=== PATIENT | female | born 1945 | race Caucasian/White ===

== ENCOUNTER 2017-11-01 11:54 | Inpatient (IN) | payer MEDICARE, OTHER ==
[2017-11-01 12:44] LABS: BILIRUBIN,URINE NEGATIVE (NEG); CLARITY,URINE CLEAR; COLOR,URINE YELLOW; GLUCOSE,URINE >=1000 mg/dL (NEG); NITRITE,URINE NEGATIVE (NEG); PROTEIN,URINE NEGATIVE (NEG-TRACE); UROBILINOGEN,URINE 0.2 mg/dL (0.2 mg/dL)
[2017-11-01 12:53] LABS: ADD MAN DIFF? NO
[2017-11-01 12:59] LABS: BASO % 1 % (0-3); EOS # 0.1 x10^3/uL (0.0-0.7); EOS % 2 % (0-3); HEMATOCRIT 41.2 % (36.0-47.0); HEMOGLOBIN 13.8 g/dL (12.0-15.5); LYMPH # 1.6 x10^3/uL (1.0-4.8); LYMPH % 20 % (24-48); MEAN CORPUSCULAR HEMOGLOBIN 31 pg (25-35); MEAN CORPUSCULAR HGB CONC 34 g/dL (31-37); MEAN CORPUSCULAR VOLUME 91 fL (79-100); MONO # 0.5 x10^3/uL (0.0-1.1); MONO % 7 % (0-9); NEUT # 5.7 x10^3uL (1.8-7.7); NEUT % 71 % (31-73); PLATELET COUNT 187 x10^3/uL (140-400); RED BLOOD COUNT 4.53 x10^6/uL (3.50-5.40); RED CELL DISTRIBUTION WIDTH 13.1 % (11.5-14.5)
[2017-11-01 13:08] LABS: BACTERIA,URINE 0 /HPF (0-FEW); RBC,URINE 0 /HPF (0-2); SQUAMOUS EPITHELIAL CELL,UR FEW /LPF
[2017-11-01 13:09] LABS: ANION GAP 15 (6-14); BLOOD UREA NITROGEN 12 mg/dL (7-20); BUN/CREATININE RATIO 10 (6-20); CALCIUM 9.6 mg/dL (8.5-10.1); CARBON DIOXIDE 21 mmol/L (21-32); CHLORIDE 100 mmol/L (98-107); CREATININE 1.2 mg/dL (0.6-1.0); GFR 44.3; GLUCOSE 462 mg/dL (70-99); POTASSIUM 4.4 mmol/L (3.5-5.1); SODIUM 136 mmol/L (136-145)
[2017-11-01 13:14] LABS: ALBUMIN 3.2 g/dL (3.4-5.0); ALBUMIN/GLOBULIN RATIO 0.9 (1.0-1.7); ALK PHOS 138 U/L (46-116); ALT (SGPT) 22 U/L (14-59); AST (SGOT) 24 U/L (15-37); LIPASE 123 U/L (73-393); TOTAL BILIRUBIN 0.4 mg/dL (0.2-1.0); TOTAL PROTEIN 6.8 g/dL (6.4-8.2)
[2017-11-01 13:21] LABS: TROPONINI < 0.017 ng/mL (0.000-0.055)
[2017-11-01] MEDS: fentaNYL PF VIAL 100 MCG/2 ML VIAL IV ×3 (14:15→19:19)
[2017-11-01] MEDS: ONDANSETRON PF 4 MG/2 ML VIAL. IV (14:50)
[2017-11-01 17:52] LABS: TROPONINI < 0.017 ng/mL (0.000-0.055)
[2017-11-01 18:41] LABS: POC GLUCOSE 414 mg/dL (70-99)
[2017-11-01] MEDS: INSULIN ASPART 300 UNITS/3 ML INSULN.PEN SQ (19:13)
[2017-11-01 20:31] LABS: POC GLUCOSE 262 mg/dL (70-99)
[2017-11-02] MEDS: ZOLPIDEM 5 MG TABLET. PO ×2 (00:01→21:38)
[2017-11-02] MEDS: CIPROFLOXACIN HCL 250 MG TABLET. PO ×2 (00:01→10:01)
[2017-11-02 05:38] LABS: ADD MAN DIFF? NO
[2017-11-02 06:00] LABS: BASO % 1 % (0-3); EOS # 0.2 x10^3/uL (0.0-0.7); EOS % 3 % (0-3); HEMATOCRIT 40.5 % (36.0-47.0); HEMOGLOBIN 13.5 g/dL (12.0-15.5); LYMPH # 2.6 x10^3/uL (1.0-4.8); LYMPH % 46 % (24-48); MEAN CORPUSCULAR HEMOGLOBIN 30 pg (25-35); MEAN CORPUSCULAR HGB CONC 33 g/dL (31-37); MEAN CORPUSCULAR VOLUME 91 fL (79-100); MONO # 0.6 x10^3/uL (0.0-1.1); MONO % 11 % (0-9); NEUT # 2.2 x10^3uL (1.8-7.7); NEUT % 39 % (31-73); PLATELET COUNT 169 x10^3/uL (140-400); RED BLOOD COUNT 4.45 x10^6/uL (3.50-5.40); RED CELL DISTRIBUTION WIDTH 13.1 % (11.5-14.5); WHITE BLOOD COUNT 5.6 x10^3/uL (4.0-11.0)
[2017-11-02 06:05] LABS: ALBUMIN 2.8 g/dL (3.4-5.0); ALBUMIN/GLOBULIN RATIO 0.8 (1.0-1.7); ALK PHOS 110 U/L (46-116); ALT (SGPT) 20 U/L (14-59); ANION GAP 8 (6-14); AST (SGOT) 19 U/L (15-37); BLOOD UREA NITROGEN 13 mg/dL (7-20); BUN/CREATININE RATIO 16 (6-20); CALCIUM 8.9 mg/dL (8.5-10.1); CARBON DIOXIDE 27 mmol/L (21-32); CHLORIDE 105 mmol/L (98-107); CREATININE 0.8 mg/dL (0.6-1.0); GFR 70.7; GLUCOSE 277 mg/dL (70-99); SODIUM 140 mmol/L (136-145); TOTAL BILIRUBIN 0.4 mg/dL (0.2-1.0); TOTAL PROTEIN 6.3 g/dL (6.4-8.2)
[2017-11-02 07:56] LABS: POC GLUCOSE 272 mg/dL (70-99)
[2017-11-02] MEDS ORDERED: DEXTROSE 50% 25 GM / 50ML DISP.SYRIN. IV (09:15)
[2017-11-02] MEDS ORDERED: HYDROcodone/APAP 5/325MG 1 TAB TABLET PO (09:15)
[2017-11-02] MEDS ORDERED: ONDANSETRON PF 4 MG/2 ML VIAL. IV (09:30)
[2017-11-02] MEDS ORDERED: hydrALAZINE 20 MG/ML VIAL. IVP (09:30)
[2017-11-02] MEDS ORDERED: traMADol 50 MG TABLET PO (09:30)
[2017-11-02] MEDS: DICLOFENAC SODIUM 1% TOPICAL GEL 100GM TUBE. TP ×5 (10:01→21:47)
[2017-11-02] MEDS: fentaNYL PF VIAL 100 MCG/2 ML VIAL IV ×2 (11:31→15:35)
[2017-11-02] MEDS: INSULIN ASPART 300 UNITS/3 ML INSULN.PEN SQ ×4 (12:16→21:48)
[2017-11-02] MEDS: GABAPENTIN 300 MG CAPSULE. PO ×2 (15:22→21:38)
[2017-11-02 16:46] LABS: POC GLUCOSE 244 mg/dL (70-99)
[2017-11-02 16:46] LABS: POC GLUCOSE 361 mg/dL (70-99)
[2017-11-02 20:32] LABS: POC GLUCOSE 325 mg/dL (70-99)
[2017-11-02] MEDS: INSULIN DETEMIR 300 UNITS/3 ML INSULN.PEN. SQ (21:46)
[2017-11-03 04:36] LABS: ADD MAN DIFF? NO
[2017-11-03 04:49] LABS: BASO % 1 % (0-3); EOS # 0.2 x10^3/uL (0.0-0.7); EOS % 3 % (0-3); HEMATOCRIT 41.3 % (36.0-47.0); LYMPH # 2.5 x10^3/uL (1.0-4.8); LYMPH % 44 % (24-48); MEAN CORPUSCULAR HEMOGLOBIN 31 pg (25-35); MEAN CORPUSCULAR HGB CONC 34 g/dL (31-37); MEAN CORPUSCULAR VOLUME 91 fL (79-100); MONO # 0.6 x10^3/uL (0.0-1.1); MONO % 10 % (0-9); NEUT # 2.4 x10^3uL (1.8-7.7); NEUT % 43 % (31-73); PLATELET COUNT 159 x10^3/uL (140-400); RED BLOOD COUNT 4.55 x10^6/uL (3.50-5.40); RED CELL DISTRIBUTION WIDTH 13.2 % (11.5-14.5); WHITE BLOOD COUNT 5.7 x10^3/uL (4.0-11.0)
[2017-11-03 05:54] LABS: ANION GAP 10 (6-14); BLOOD UREA NITROGEN 12 mg/dL (7-20); CALCIUM 9.5 mg/dL (8.5-10.1); CARBON DIOXIDE 25 mmol/L (21-32); CHLORIDE 102 mmol/L (98-107); CREATININE 0.8 mg/dL (0.6-1.0); GFR 70.7; GLUCOSE 237 mg/dL (70-99); POTASSIUM 3.7 mmol/L (3.5-5.1); SODIUM 137 mmol/L (136-145)
[2017-11-03] MEDS ORDERED: INSULIN ASPART 300 UNITS/3 ML INSULN.PEN SQ (07:30)
[2017-11-03 08:15] LABS: POC GLUCOSE 214 mg/dL (70-99)
[2017-11-03] MEDS: DOCUSATE SODIUM 100 MG CAPSULE. PO (09:31)
[2017-11-03] MEDS: GABAPENTIN 300 MG CAPSULE. PO ×3 (09:32→20:41)
[2017-11-03] MEDS: NYSTATIN TOPICAL POWDER 15GM BOTTLE. TP ×2 (09:32→20:42)
[2017-11-03] MEDS: NAPROXEN 500 MG TABLET PO (09:32)
[2017-11-03] MEDS: DICLOFENAC SODIUM 1% TOPICAL GEL 100GM TUBE. TP ×4 (09:32→20:42)
[2017-11-03] MEDS: INSULIN ASPART 300 UNITS/3 ML INSULN.PEN SQ ×6 (09:42→17:30)
[2017-11-03 11:50] LABS: POC GLUCOSE 259 mg/dL (70-99)
[2017-11-03] MEDS: LORazepam 1 MG TABLET PO (12:15)
[2017-11-03 14:17] LABS: HEMOGLOBIN A1C 12.4 % (4.8-5.6)
[2017-11-03] MEDS: valACYclovir 500 MG TABLET. PO ×2 (17:23→22:52)
[2017-11-03 17:26] LABS: POC GLUCOSE 350 mg/dL (70-99)
[2017-11-03] MEDS: ZOLPIDEM 5 MG TABLET. PO ×2 (20:41→22:52)
[2017-11-03 20:52] LABS: POC GLUCOSE 324 mg/dL (70-99)
[2017-11-03] MEDS: INSULIN DETEMIR 300 UNITS/3 ML INSULN.PEN. SQ (20:53)
[2017-11-04 08:00] LABS: POC GLUCOSE 219 mg/dL (70-99)
[2017-11-04] MEDS: NYSTATIN TOPICAL POWDER 15GM BOTTLE. TP ×2 (08:31→22:09)
[2017-11-04] MEDS: GABAPENTIN 300 MG CAPSULE. PO ×3 (08:31→22:08)
[2017-11-04] MEDS: DOCUSATE SODIUM 100 MG CAPSULE. PO (08:31)
[2017-11-04] MEDS: valACYclovir 500 MG TABLET. PO (08:31)
[2017-11-04] MEDS: DICLOFENAC SODIUM 1% TOPICAL GEL 100GM TUBE. TP ×4 (08:34→21:00)
[2017-11-04] MEDS: INSULIN ASPART 300 UNITS/3 ML INSULN.PEN SQ ×7 (08:39→17:42)
[2017-11-04 11:27] LABS: POC GLUCOSE 246 mg/dL (70-99)
[2017-11-04] MEDS: LIDOCAINE (700MG/PATCH) PATCH. TD (15:15)
[2017-11-04] MEDS ORDERED: POLYETHYLENE GLYCOL 3350 17 GM PACKET. PO (15:15)
[2017-11-04 15:34] LABS: ADD MAN DIFF? NO
[2017-11-04 15:38] LABS: BASO % 1 % (0-3); EOS # 0.2 x10^3/uL (0.0-0.7); EOS % 3 % (0-3); HEMATOCRIT 41.1 % (36.0-47.0); LYMPH # 2.4 x10^3/uL (1.0-4.8); LYMPH % 35 % (24-48); MEAN CORPUSCULAR HEMOGLOBIN 31 pg (25-35); MEAN CORPUSCULAR HGB CONC 34 g/dL (31-37); MEAN CORPUSCULAR VOLUME 91 fL (79-100); MONO # 0.6 x10^3/uL (0.0-1.1); MONO % 8 % (0-9); NEUT # 3.7 x10^3uL (1.8-7.7); NEUT % 54 % (31-73); PLATELET COUNT 192 x10^3/uL (140-400); RED BLOOD COUNT 4.53 x10^6/uL (3.50-5.40); RED CELL DISTRIBUTION WIDTH 12.8 % (11.5-14.5); WHITE BLOOD COUNT 6.9 x10^3/uL (4.0-11.0)
[2017-11-04 16:02] LABS: ALBUMIN/GLOBULIN RATIO 0.8 (1.0-1.7); ALK PHOS 137 U/L (46-116); ALT (SGPT) 25 U/L (14-59); ANION GAP 5 (6-14); AST (SGOT) 22 U/L (15-37); BLOOD UREA NITROGEN 15 mg/dL (7-20); BUN/CREATININE RATIO 19 (6-20); CALCIUM 8.9 mg/dL (8.5-10.1); CARBON DIOXIDE 29 mmol/L (21-32); CHLORIDE 104 mmol/L (98-107); CREATININE 0.8 mg/dL (0.6-1.0); GFR 70.7; GLUCOSE 321 mg/dL (70-99); SODIUM 138 mmol/L (136-145); TOTAL BILIRUBIN 0.3 mg/dL (0.2-1.0); TOTAL PROTEIN 6.8 g/dL (6.4-8.2)
[2017-11-04 17:16] LABS: POC GLUCOSE 325 mg/dL (70-99)
[2017-11-04] MEDS: PANTOPRAZOLE 40 MG TABLET.DR. PO (17:36)
[2017-11-04] MEDS: ACETAMINOPHEN 325 MG TABLET. PO (17:36)
[2017-11-04 17:56] LABS: SEDIMENTATION RATE 25 (0-25)
[2017-11-04] MEDS: traMADol 50 MG TABLET PO (20:42)
[2017-11-04 21:29] LABS: POC GLUCOSE 264 mg/dL (70-99)
[2017-11-04] MEDS: ZOLPIDEM 5 MG TABLET. PO (22:08)
[2017-11-04] MEDS: INSULIN DETEMIR 300 UNITS/3 ML INSULN.PEN. SQ (22:47)
[2017-11-05 08:22] LABS: POC GLUCOSE 160 mg/dL (70-99)
[2017-11-05] MEDS: DICLOFENAC SODIUM 1% TOPICAL GEL 100GM TUBE. TP ×4 (09:13→21:00)
[2017-11-05] MEDS: PANTOPRAZOLE 40 MG TABLET.DR. PO (09:13)
[2017-11-05] MEDS: LIDOCAINE (700MG/PATCH) PATCH. TD (09:14)
[2017-11-05] MEDS: GABAPENTIN 300 MG CAPSULE. PO ×3 (09:14→22:05)
[2017-11-05] MEDS: NYSTATIN TOPICAL POWDER 15GM BOTTLE. TP ×2 (09:16→21:00)
[2017-11-05] MEDS: INSULIN ASPART 300 UNITS/3 ML INSULN.PEN SQ ×7 (09:19→23:00)
[2017-11-05 10:22] LABS: BILIRUBIN,URINE NEGATIVE (NEG); CLARITY,URINE CLEAR; COLOR,URINE YELLOW; GLUCOSE,URINE >=1000 mg/dL (NEG); NITRITE,URINE NEGATIVE (NEG); PROTEIN,URINE NEGATIVE (NEG-TRACE); UROBILINOGEN,URINE 0.2 mg/dL (0.2 mg/dL)
[2017-11-05 10:39] LABS: BACTERIA,URINE FEW /HPF (0-FEW); RBC,URINE 0 /HPF (0-2); SQUAMOUS EPITHELIAL CELL,UR MOD /LPF
[2017-11-05] MEDS: traMADol 50 MG TABLET PO (11:43)
[2017-11-05 11:49] LABS: POC GLUCOSE 257 mg/dL (70-99)
[2017-11-05 17:13] LABS: POC GLUCOSE 211 mg/dL (70-99)
[2017-11-05] MEDS: oxyCODONE/APAP 7.5/325 1 TAB TABLET PO (18:24)
[2017-11-05 20:47] LABS: POC GLUCOSE 273 mg/dL (70-99)
[2017-11-05] MEDS: ZOLPIDEM 5 MG TABLET. PO (22:05)
[2017-11-05] MEDS: DICYCLOMINE HCL 10 MG CAPSULE PO (22:07)
[2017-11-05] MEDS: INSULIN DETEMIR 300 UNITS/3 ML INSULN.PEN. SQ (22:14)
[2017-11-06 08:08] LABS: POC GLUCOSE 173 mg/dL (70-99)
[2017-11-06] MEDS: NYSTATIN TOPICAL POWDER 15GM BOTTLE. TP (08:54)
[2017-11-06] MEDS: oxyCODONE/APAP 7.5/325 1 TAB TABLET PO ×2 (08:54→16:25)
[2017-11-06] MEDS: DICLOFENAC SODIUM 1% TOPICAL GEL 100GM TUBE. TP ×3 (08:54→17:00)
[2017-11-06] MEDS: PANTOPRAZOLE 40 MG TABLET.DR. PO (08:54)
[2017-11-06] MEDS: GABAPENTIN 300 MG CAPSULE. PO ×2 (08:55→14:58)
[2017-11-06] MEDS: LIDOCAINE (700MG/PATCH) PATCH. TD (08:55)
[2017-11-06] MEDS: INSULIN ASPART 300 UNITS/3 ML INSULN.PEN SQ ×6 (09:03→17:34)
[2017-11-06] MEDS: traMADol 50 MG TABLET PO ×2 (10:44→16:23)
[2017-11-06 12:15] LABS: POC GLUCOSE 214 mg/dL (70-99)
[2017-11-06] MEDS: BUTORPHANOL 2 MG/ML VIAL. IM (16:49)
[2017-11-06 17:26] LABS: POC GLUCOSE 189 mg/dL (70-99)
[2017-11-06] MEDS: tiZANidine 4 MG TABLET. PO (17:29)
[2017-11-06] MEDS ORDERED: GABAPENTIN 400 MG CAPSULE. PO (21:00)
== END 2017-11-06 18:07 | disposition home or self-care (01) | DRG 73 ==
LOC: ER 11:54 → 4 NORTH 14:06
DX: E11.43 Type 2 diabetes mellitus with diabetic autonomic (poly)neuropathy (principal); K85.90 Acute pancreatitis without necrosis or infection, unspecified; N17.0 Acute kidney failure with tubular necrosis; E11.22 Type 2 diabetes mellitus with diabetic chronic kidney disease; E11.65 Type 2 diabetes mellitus with hyperglycemia; E44.1 Mild protein-calorie malnutrition; N18.3 Chronic kidney disease, stage 3 (moderate); M41.9 Scoliosis, unspecified; B38.0 Acute pulmonary coccidioidomycosis; N39.0 Urinary tract infection, site not specified; K31.84 Gastroparesis; R10.13 Epigastric pain; D64.9 Anemia, unspecified; E66.9 Obesity, unspecified; E78.00 Pure hypercholesterolemia, unspecified; E78.5 Hyperlipidemia, unspecified; I12.9 Hypertensive chronic kidney disease with stage 1 through stage 4 chronic kidney disease, or unspecified chronic kidney disease; K29.70 Gastritis, unspecified, without bleeding; K21.9 Gastro-esophageal reflux disease without esophagitis; K44.9 Diaphragmatic hernia without obstruction or gangrene; K57.30 Diverticulosis of large intestine without perforation or abscess without bleeding; K59.00 Constipation, unspecified; M17.0 Bilateral primary osteoarthritis of knee; K21.0 Gastro-esophageal reflux disease with esophagitis; M79.2 Neuralgia and neuritis, unspecified; Z79.899 Other long term (current) drug therapy; Z80.3 Family history of malignant neoplasm of breast; Z82.3 Family history of stroke; Z82.49 Family history of ischemic heart disease and other diseases of the circulatory system; Z83.71 Family history of colonic polyps; Z83.3 Family history of diabetes mellitus; Z86.19 Personal history of other infectious and parasitic diseases; Z90.49 Acquired absence of other specified parts of digestive tract; Z90.710 Acquired absence of both cervix and uterus; Z91.041 Radiographic dye allergy status; Z98.1 Arthrodesis status; Z88.5 Allergy status to narcotic agent; Z88.8 Allergy status to other drugs, medicaments and biological substances; Z68.32 Body mass index [BMI] 32.0-32.9, adult
CPT/HCPCS: 36415; 71250; 72146; 74176; 76770; 80048; 80053; 81001; 82962; 83036; 83690; 84484; 85025; 85651; 87086; 93005; 96374; 97161-GP; 99285; 99285-25; J1815; J2405; J3010

== ENCOUNTER → 2017-11-24 | Outpatient (CLI) | payer MEDICARE, OTHER | END | disposition home or self-care (01) | LOC: KCIC 10:41 | DX: M47.894 Other spondylosis, thoracic region (principal); R10.84 Generalized abdominal pain | CPT/HCPCS: 72072 ==

== ENCOUNTER → 2018-02-26 | Outpatient (CLI) | payer MEDICARE, OTHER | END | disposition home or self-care (01) | LOC: KCIC MAMMO 11:43 | DX: N63.11 Unspecified lump in the right breast, upper outer quadrant (principal) | CPT/HCPCS: 76641; 77066; G0279 ==